=== PATIENT | female | born 1970 | race Caucasian/White ===

== ENCOUNTER 2023-01-24 16:32 | Emergency (ER) | payer MEDICAID ==
[~2023-01-24] VITALS: Ht 157.5 cm; Wt 72.6 kg
[2023-01-24 17:23] VITALS: BP 122/56; PULSE 67; RESP 18; TEMP 97.5; O2SAT 97
[2023-01-24] MEDS ORDERED: NACL 0.9% 1,000 ML IV ONE (18:15)
[2023-01-24] MEDS ORDERED: KETOROLAC 60 MG/2 ML VIAL IM ONE (18:15)
[2023-01-24 19:00] VITALS: O2SAT 97
[2023-01-24] MEDS ORDERED: IBUP-2213 PO (20:06)
== END 2023-01-24 20:35 | disposition home or self-care (01) ==
LOC: MED 16:32
DX: M25.50 Pain in unspecified joint (principal); R19.7 Diarrhea, unspecified; R10.84 Generalized abdominal pain; R51.9 Headache, unspecified; Z79.899 Other long term (current) drug therapy
CPT/HCPCS: 73562; 81002; 81025; 96360; 96372; 99283; J1885; J7030

== ENCOUNTER 2023-01-30 13:11 | Emergency (ER) | payer MEDICAID ==
[~2023-01-30] VITALS: Ht 165.1 cm; Wt 81.6 kg
[~2023-01-30 13:11] MED LIST: IBUP-2213 PO
[2023-01-30 13:50] VITALS: BP 137/78; PULSE 71; RESP 18; TEMP 98.7; O2SAT 98
[2023-01-30 14:24] LABS: BASOPHILS % (AUTO) 0.3 % (0.0-2.0); EOSINOPHILS # (AUTO) 0.1 K/uL (0-0.4); EOSINOPHILS % (AUTO) 1.1 % (0.0-4.0); HEMATOCRIT 34.3 % (36-48); HEMOGLOBIN 11.3 g/dL (12.0-16.0); LYMPHOCYTES # (AUTO) 2.3 K/uL (2.5-16.5); LYMPHOCYTES % (AUTO) 20.8 % (20.5-51.1); MEAN CORPUSCULAR HEMOGLOBIN 28 pg (27-31); MEAN CORPUSCULAR HGB CONC 33 g/dL (33-37); MEAN CORPUSCULAR VOLUME 85.5 fL (80-94); MONOCYTES # (AUTO) 0.9 K/uL (0.8-1.0); MONOCYTES % (AUTO) 8.4 % (1.7-9.3); NEUTROPHILS # (AUTO) 7.8 K/uL (1.8-7.7); NEUTROPHILS % (AUTO) 69.4 % (42.2-75.2); PLATELET COUNT (AUTO) 302 K/uL (140-450); RED BLOOD CELL COUNT(AUTO) 4.02 MIL/uL (4.20-5.40); WHITE BLOOD COUNT (AUTO) 11.3 K/uL (4.8-10.8)
[2023-01-30 14:41] LABS: ALBUMIN 3.4 g/dL (3.4-5.0); ANION GAP 8.6 (8-16); CALCIUM 8.5 mg/dL (8.5-10.1); CREATININE 0.7 mg/dL (0.6-1.3); POTASSIUM 3.6 mmol/L (3.5-5.1); TOTAL BILIRUBIN 0.4 mg/dL (0.0-1.0); TOTAL PROTEIN, SERUM 7.3 g/dL (6.4-8.2)
[2023-01-30 16:33] VITALS: TEMP 98.1
[2023-01-30] MEDS ORDERED: AMOX1TER12 PO (16:45)
[2023-01-30] MEDS ORDERED: ACET-11169 PO (16:47)
[2023-01-30] MEDS ORDERED: IBUP-1842 PO (16:47)
[2023-01-30 17:00] VITALS: BP 124/80; PULSE 74; RESP 17; O2SAT 98
== END 2023-01-30 17:01 | disposition home or self-care (01) ==
LOC: MED 13:11
DX: K57.92 Diverticulitis of intestine, part unspecified, without perforation or abscess without bleeding (principal); Z79.899 Other long term (current) drug therapy
CPT/HCPCS: 36415; 74177; 80053; 83690; 85025; 99285; Q9967